=== PATIENT | female | born 1955 | race Caucasian/White ===

== ENCOUNTER 2020-05-15 18:46 | Emergency (ER) | payer OTHER ==
[~2020-05-15] VITALS: Ht 152.4 cm; Wt 136.1 kg
--- NOTE | 2020-05-15 18:55 | Emergency Department Note ---
History of Present Illnes History of Present Illness Chief Complaint: COVID PUI History of Present Illness This is a 65 year old female presents to the ED for Chest pressure with SOB since 04/24/2020. Seen by PCP, Dr Fish ,patient was referred to Dr Rosen import/export administrator who performed a chemical stress test. No abl per patient . Historian: Patient Arrival Mode: Car Onset (how long ago): week(s) (3) Duration (how long): week(s) (3) Progression: worsening Chronicity: new Relieving factors: none Exacerbating factors: none Associated symptoms: Reports chest pain, Reports shortness of breath Previous service: tests performed, one or more referrals, re-evaluation Past Medical/Family History Physician Review I have reviewed the patient's past medical and family history. Any updates have been documented here. Past Medical History Recent Fever: No Clinical Suspicion of Infectio: No New/Unexplained Change in Ment: No Other Medical History: COPD hiatal hernia Past Surgical History: None Social History Smoking Cessation: Never Smoker Alcohol Use: None Any Illegal Drug Use: No Review of Systems Review of Systems Constitutional: Reports no symptoms EENTM: Reports no symptoms Cardiovascular: Reports chest pain Respiratory: Reports dyspnea Gastrointestinal: Reports no symptoms Genitourinary: Reports no symptoms Musculoskeletal: Reports no symptoms Integumentary: Reports no symptoms Neurological: Reports no symptoms Psychological: Reports no symptoms Endocrine: Reports no symptoms Hematological/Lymphatic: Reports no symptoms Physical Exam Related Data Allergies: Coded Allergies: No Known Drug Allergies (Verified Allergy, Unknown, 05/15/20) Triage Vital Signs Vital Signs Date Time Temp Pulse Resp B/P (MAP) Pulse Ox O2 Delivery O2 Flow Rate FiO2 05/15/20 18:52 98.0 72 18 133/62 100 05/15/20 20:00 Room Air Vital signs reviewed: Yes Physical Exam CONSTITUTIONAL Constitutional: Present obese HENT HENT: Present normocephalic, Present atraumatic, Present oropharynx clear/moist, Present nose normal HENT L/R: Present left ext ear normal, Present right ext ear normal EYES Eyes: Reports PERRL, Reports conjunctivae normal NECK Neck: Present ROM normal PULMONARY Pulmonary: Present effort normal, Present breath sounds normal CARDIOVASCULAR Cardiovascular: Present regular rhythm, Present heart sounds normal, Present capillary refill normal, Present normal rate GASTROINTESTINAL Abdominal: Present soft, Present nontender, Present bowel sounds normal GENITOURINARY Genitourinary: Present exam deferred SKIN Skin: Present warm, Present dry MUSCULOSKELETAL Musculoskeletal: Present ROM normal NEUROLOGICAL Neurological: Present alert, Present oriented x 3, Present no gross motor or sensory deficits PSYCHOLOGICAL Psychological: Present mood/affect normal, Present judgement normal Results Laboratory Lab results reviewed: Yes Laboratory comments Laboratory Tests Test 05/15/20 22:00 05/15/20 19:30 Creatine Kinase 29 IU/L (29-168) 30 IU/L (29-168) Creatine Kinase MB 0.30 ng/mL (0-5.0) 0.30 ng/mL (0-5.0) Troponin I 0.019 ng/mL (0-0.300) 0.014 ng/mL (0-0.300) White Blood Count 6.50 x10e3/uL (4.8-10.8) Red Blood Count 4.53 x10e6/uL (3.6-5.1) Hemoglobin 13.7 g/dL (12.0-16.0) Hematocrit 41.7 % (34.2-44.1) Mean Corpuscular Volume 92.1 fL (81-99) Mean Corpuscular Hemoglobin 30.2 pg (28-32) Mean Corpuscular Hemoglobin Concent 32.9 g/dL (31-35) Red Cell Distribution Width 13.2 % (11.7-14.4) Platelet Count 217 x10e3/uL (140-360) Neutrophils (%) (Auto) 56.4 % (38.7-80.0) Lymphocytes (%) (Auto) 32.0 % (18.0-39.1) Monocytes (%) (Auto) 9.2 % (4.4-11.3) Eosinophils (%) (Auto) 1.5 % (0.0-6.0) Basophils (%) (Auto) 0.6 % (0.0-1.0) Neutrophils # (Auto) 3.7 (2.1-6.9) Lymphocytes # (Auto) 2.1 (1.0-3.2) Monocytes # (Auto) 0.6 (0.2-0.8) Eosinophils # (Auto) 0.1 (0.0-0.4) Basophils # (Auto) 0.0 (0.0-0.1) Absolute Immature Granulocyte (auto 0.02 x10e3/uL (0-0.1) Sodium Level 144 mmol/L (136-145) Potassium Level 3.6 mmol/L (3.5-5.1) Chloride Level 107 mmol/L (98-107) Carbon Dioxide Level 25 mmol/L (22-29) Anion Gap 15.6 mmol/L (8-16) Blood Urea Nitrogen 10 mg/dL (7-26) Creatinine 0.76 mg/dL (0.57-1.11) Estimat Glomerular Filtration Rate > 60 ML/MIN (60-) BUN/Creatinine Ratio 13 (6-25) Glucose Level 95 mg/dL (74-118) Calcium Level 8.8 mg/dL (8.4-10.2) Total Bilirubin 0.4 mg/dL (0.2-1.2) Aspartate Amino Transf (AST/SGOT) 16 IU/L (5-34) Alanine Aminotransferase (ALT/SGPT) 20 IU/L (0-55) Alkaline Phosphatase 96 IU/L (40-150) B-Type Natriuretic Peptide 101.0 pg/mL (0-100) Total Protein 6.7 g/dL (6.5-8.1) Albumin 4.0 g/dL (3.5-5.0) Globulin 2.7 g/dL (2.3-3.5) Albumin/Globulin Ratio 1.5 (0.8-2.0) Imaging Imaging results reviewed: Yes Impressions [place] [id number] Patient Name: KRISTA BYRD MR #: [id number] : 1955 Age/Sex: 65/F Req #: [id number] Adm Physician: Ordered by: JACKIE LOZADA DO Report #: [id number] Location: ER Room/Bed: Procedure: [id number] CT/CT CHEST W Exam Date: Exam Time: REPORT STATUS: Signed EXAM: CT Chest WITH contrast 05/15/2020 8:30 PM INDICATION: chest pain COMPARISON: None TECHNIQUE: Chest was scanned utilizing a multidetector helical scanner from the lung apex through the level of the adrenal glands without administration of IV contrast. Coronal and sagittal reformations were obtained. Routine protocol was performed. IV CONTRAST: 100 mL of Omnipaque 300 COMPLICATIONS: None RADIATION DOSE: Total DLP: 543.71 mGy*cm Estimated effective dose: (DLP x 0.014 x size factor) mSv CTDIvol has been reviewed. It is below the limits set by the Radiation Protocol Committee (RPC). FINDINGS: LINES/ TUBES: None. LUNGS AND AIRWAYS: No pulmonary embolism to the level of interlobar pulmonary arteries. Segmental and subsegmental pulmonary arteries are not adequately opacified cannot be evaluated. Scattered subsegmental atelectasis are seen in both lungs. There is a 0.5 cm nodular opacity in the right lower lobe (series 3, image 75) could represent a focal area of atelectasis. Airways are normal. PLEURA: The pleural spaces are clear. HEART AND MEDIASTINUM: The thyroid gland is normal. No mediastinal, hilar or axillary lymphadenopathy. The heart is normal in size.. There is no pericardial effusion. UPPER ABDOMEN: There are cholecystectomy clips. BONES: Unremarkable. SOFT TISSUES: Unremarkable. IMPRESSION: No pulmonary embolism Scattered subsegmental atelectasis are seen in both lungs. A0.5 cm nodular opacity in the right lower lobe could represent a focal area of atelectasis. 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 Machine: Interpreted by ED physician Date: May 15, 2020 Time: 19:06 Prior ECG tracings: reviewed Rhythm: sinus rhythm Rate: normal BPM: 62 QRS axis: normal ST segments normal: Yes T waves normal: No T wave elevation: V1, V2 Clinical Impression: normal ECG Clinical Decision Tools HEART Score Date Taken: May 19, 2020 Time taken: 18:00 HEART Score: HEART Score Response (Comments) Value History Slightly suspicious 0 EKG Normal 0 Age 45 - 65 1 Troponin < or = to normal limit Total 1 Assessment & Plan Medical Decision Making MDM Diff Dx : ACS, Angina, PE, PTX, pneumonia, aortic dissection Assessment & Plan Final Impression: (1) Chest pain Depart Disposition: HOME, SELF-CARE Last Vital Signs Date Time Temp Pulse Resp B/P (MAP) Pulse Ox O2 Delivery O2 Flow Rate FiO2 05/15/20 22:56 54 15 97 05/15/20 22:50 117/82 Room Air 05/15/20 18:52 98.0 JACKIE LOZADA DO May 15, 2020 18:55
[2020-05-15] MEDS ORDERED: ASPIRIN 81 MG CHEW TAB PO ONE (19:00)
[2020-05-15 19:45] LABS: BASOPHILS % 0.6 % (0.0-1.0); EOSINOPHILS # (AUTO) 0.1 (0.0-0.4); EOSINOPHILS % 1.5 % (0.0-6.0); HEMATOCRIT 41.7 % (34.2-44.1); HEMOGLOBIN 13.7 g/dL (12.0-16.0); LYMPHOCYTES # (AUTO) 2.1 (1.0-3.2); MEAN CORPUSCULAR HEMOGLOBIN 30.2 pg (28-32); MEAN CORPUSCULAR HGB CONC 32.9 g/dL (31-35); MEAN CORPUSCULAR VOLUME 92.1 fL (81-99); MONOCYTES # (AUTO) 0.6 (0.2-0.8); MONOCYTES % 9.2 % (4.4-11.3); NEUTROPHILS # (AUTO) 3.7 (2.1-6.9); NEUTROPHILS % 56.4 % (38.7-80.0); PLATELET COUNT 217 x10e3/uL (140-360); RED BLOOD COUNT 4.53 x10e6/uL (3.6-5.1); RED CELL DISTRIBUTION WIDTH 13.2 % (11.7-14.4)
--- NOTE | 2020-05-15 20:01 | Diagnostic Imaging Report ---
EXAMINATION: CHEST SINGLE (PORTABLE) INDICATION: SOB COMPARISON: None FINDINGS: AP view TUBES and LINES: None. . LUNGS/PLEURA: Lungs are well inflated. There are bilateral interstitial opacities, consistent with pulmonary edema. Superimposed pneumonia cannot be excluded.. There is no pleural effusion or pneumothorax. HEART AND MEDIASTINUM: Cardiac size is mildly enlarged. BONES AND SOFT TISSUES: No acute osseous lesion. Soft tissues are unremarkable. UPPER ABDOMEN: No free air under the diaphragm. IMPRESSION: Mild cardiomegaly and pulmonary edema. Superimposed pneumonia cannot be excluded. Signed by: Mert Iglesias MD on 05/15/2020 7:57 PM
[2020-05-15 20:06] LABS: ALANINE AMINOTRANSFERASE 20 IU/L (0-55); ALBUMIN/GLOBULIN RATIO 1.5 (0.8-2.0); ALKALINE PHOSPHATASE 96 IU/L (40-150); ANION GAP 15.6 mmol/L (8-16); BLOOD UREA NITROGEN 10 mg/dL (7-26); BUN/CREATININE RATIO 13 (6-25); CALCIUM 8.8 mg/dL (8.4-10.2); CARBON DIOXIDE 25 mmol/L (22-29); CHLORIDE 107 mmol/L (98-107); CREATINE KINASE 30 IU/L (29-168); CREATININE, SERUM 0.76 mg/dL (0.57-1.11); EST GLOMERULAR FILTRATION RATE > 60 ML/MIN (60-); GLUCOSE 95 mg/dL (74-118); POTASSIUM 3.6 mmol/L (3.5-5.1); SODIUM 144 mmol/L (136-145)
--- NOTE | 2020-05-15 20:58 | Diagnostic Imaging Report ---
EXAM: CT Chest WITH contrast 05/15/2020 8:30 PM INDICATION: chest pain COMPARISON: None TECHNIQUE: Chest was scanned utilizing a multidetector helical scanner from the lung apex through the level of the adrenal glands without administration of IV contrast. Coronal and sagittal reformations were obtained. Routine protocol was performed. IV CONTRAST: 100 mL of Omnipaque 300 COMPLICATIONS: None RADIATION DOSE: Total DLP: 543.71 mGy*cm Estimated effective dose: (DLP x 0.014 x size factor) mSv CTDIvol has been reviewed. It is below the limits set by the Radiation Protocol Committee (RPC). FINDINGS: LINES/ TUBES: None. LUNGS AND AIRWAYS: No pulmonary embolism to the level of interlobar pulmonary arteries. Segmental and subsegmental pulmonary arteries are not adequately opacified cannot be evaluated. Scattered subsegmental atelectasis are seen in both lungs. There is a 0.5 cm nodular opacity in the right lower lobe (series 3, image 75) could represent a focal area of atelectasis. Airways are normal. PLEURA: The pleural spaces are clear. HEART AND MEDIASTINUM: The thyroid gland is normal. No mediastinal, hilar or axillary lymphadenopathy. The heart is normal in size.. There is no pericardial effusion. UPPER ABDOMEN: There are cholecystectomy clips. BONES: Unremarkable. SOFT TISSUES: Unremarkable. IMPRESSION: No pulmonary embolism Scattered subsegmental atelectasis are seen in both lungs. A0.5 cm nodular opacity in the right lower lobe could represent a focal area of atelectasis. Signed by: Mert Iglesias MD on 05/15/2020 8:55 PM
--- OUTSIDE RECORDS SUMMARY | 2020-05-15 21:12 | XMS REPORT | Continuity of Care Document ---
Author Author [facility] Organization [facility] Address [address] [place]. 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 Allergies, Adverse Reactions, Alerts This patient has no known allergies or adverse reactions. Medications This patient has no known medications. Procedures This patient has no known procedures. Results Test Description Test Time Test Comments Results Result Comments Source CT CHEST W 2020-05-15 20:50:00 [place] [address] Patient Name: KRISTA BYRD MR #: [id number] : 1955 Age/Sex: 65/F Req #: [id number] Adm Physician: Ordered by: JACKIE LOZADA DO Report #: [id number] Location: ER Room/Bed: Procedure: [id number] CT/CT CHEST W Exam Date: Exam Time: REPORT STATUS: Signed EXAM: CT Chest WITH contrast 05/15/2020 8:30 PM INDICATION: chest pain COMPARISON: None TECHNIQUE: Chest was scanned utilizing a multidetector helical scanner from the lung apex through the level of the adrenal glands without administration of IV contrast. Coronal and sagittal reformations were obtained. Routine protocol was performed. IV CONTRAST: 100 mL of Omnipaque 300 COMPLICATIONS: None RADIATION DOSE: Total DLP: 543.71 mGy*cm Estimated effective dose: (DLP x 0.014 x size factor) mSv CTDIvol has been reviewed. It is below the limits set by the Radiation Protocol Committee (RPC). FINDINGS: LINES/ TUBES: None. LUNGS AND AIRWAYS: No pulmonary embolism to the level of interlobar pulmonary arteries. Segmental and subsegmental pulmonary arteries are not adequately opacified cannot be evaluated. Scattered subsegmental atelectasis are seen in both lungs. There is a 0.5 cm nodular opacity in the right lower lobe (series 3, image 75) could represent a focal area of atelectasis. Airways are normal. PLEURA: The pleural spaces are clear. HEART AND MEDIASTINUM: The thyroid gland is normal. No mediastinal, hilar or axillary lymphadenopathy. The heart is normal in size.. There is no pericardial effusion. UPPER ABDOMEN: There are cholecystectomy clips. BONES: Unremarkable. SOFT TISSUES: Unremarkable. IMPRESSION: No pulmonary embolism Scattered subsegmental atelectasis are seen in both lungs. A0.5 cm nodular opacity in the right lower lobe could represent a focal area of atelectasis. Signed by: Mert Mattson MD on 05/15/2020 8:55 PM Dictated By: MERT MATTSON MD 54 Transcribed By: BELLA on 05/15/202054 COPY TO: JACKIE LOZADA DO CHEST SINGLE (PORTABLE) 2020-05-15 19:53:00 [place] [address] Patient Name: KRISTA BYRD MR #: [id number] : 1955 Age/Sex: 65/F Req #: [id number] Adm Physician: Ordered by: JACKIE LOZADA DO Report #: [id number] Location: ER Room/Bed: Procedure: [id number] DX/CHEST SINGLE (PORTABLE) Exam Date: 05/15/20 Exam Time: 1919 REPORT STATUS: Signed EXAMINATION: CHEST SINGLE (PORTABLE) INDICATION: SOB COMPARISON: None FINDINGS: AP view TUBES and LINES: None. . LUNGS/PLEURA: Lungs are well inflated. There are bilateral interstitial opacities, consistent with pulmonary edema. Superimposed pneumonia cannot be excluded.. There is no pleural effusion or pneumothorax. HEART AND MEDIASTINUM: Cardiac size is mildly enlarged. BONES AND SOFT TISSUES: No acute osseous lesion. Soft tissues are unremarkable. UPPER ABDOMEN: No free air under the diaphragm. IMPRESSION: Mild cardiomegaly and pulmonary edema. Superimposed pneumonia cannot be excluded. Signed by: Mert Mattson MD on 05/15/2020 7:57 PM Dictated By: MERT MATTSON MD 57 Transcribed By: BELLA on 05/15/201956 COPY TO: JACKIE LOZADA DO
[2020-05-15] MEDS ORDERED: ASPIRIN 81 MG CHEW TAB ONE (22:03)
[2020-05-15 22:29] LABS: CREATINE KINASE MB 0.3 ng/mL (0-5.0)
[2020-05-15] MEDS ORDERED: KETOROLAC TROMETHAMINE 30 MG/ML VIAL IV STA (22:47)
[2020-05-15 22:56] VITALS: BP 117/82
== END 2020-05-15 23:26 | disposition home or self-care (01) ==
LOC: ER 21:08
DX: R07.89 Other chest pain (principal); R06.02 Shortness of breath; J44.9 Chronic obstructive pulmonary disease, unspecified
CPT/HCPCS: 36415; 71045; 71260; 80053; 82550; 82553; 82948; 83880; 84484; 85025; 93005; 99284; J1885

== ENCOUNTER 2021-11-22 15:14 | Emergency (ER) | payer MEDICARE ==
[~2021-11-22] VITALS: Ht 152.4 cm; Wt 136.1 kg
[2021-11-22] MEDS ORDERED: METHYLPREDNISOLONE SOD SUCC 125 MG/2ML VIAL IV ONE (15:45)
[2021-11-22] MEDS ORDERED: ALBUTEROL/IPRATROPIUM 3 ML NEB NEB ONE (15:45)
[2021-11-22 15:49] LABS: BASOPHILS % 0.4 % (0.0-1.0); EOSINOPHILS % 0.1 % (0.0-6.0); HEMOGLOBIN 14.8 g/dL (12.0-16.0); LYMPHOCYTES % 25.3 % (18.0-39.1); MEAN CORPUSCULAR HEMOGLOBIN 30.5 pg (28-32); MEAN CORPUSCULAR HGB CONC 33.6 g/dL (31-35); MEAN CORPUSCULAR VOLUME 90.7 fL (81-99); MONOCYTES # (AUTO) 0.5 (0.2-0.8); MONOCYTES % 5.9 % (4.4-11.3); NEUTROPHILS # (AUTO) 5.4 (2.1-6.9); NEUTROPHILS % 67.5 % (38.7-80.0); PLATELET COUNT 222 x10e3/uL (140-360); RED BLOOD COUNT 4.85 x10e6/uL (3.6-5.1); RED CELL DISTRIBUTION WIDTH 12.5 % (11.7-14.4)
[2021-11-22 16:03] LABS: INR 0.93; PROTHROMBIN TIME 13.3 seconds (11.9-14.5)
[2021-11-22 16:04] LABS: PARTIAL THROMBOPLASTIN TIME 27.8 seconds (23.8-35.5)
[2021-11-22 16:12] LABS: ALBUMIN 3.7 g/dL (3.5-5.0); ANION GAP 11.9 mmol/L (8-16); CALCIUM 9.4 mg/dL (8.4-10.2); CREATININE, SERUM 0.84 mg/dL (0.57-1.11); POTASSIUM 3.9 mmol/L (3.5-5.1)
[2021-11-22 16:19] LABS: CREATINE KINASE MB 0.6 ng/mL (0-5.0)
== END 2021-11-22 18:01 | disposition home or self-care (01) ==
LOC: ER 15:40
DX: J45.901 Unspecified asthma with (acute) exacerbation (principal); R05.9 Cough, unspecified; I10 Essential (primary) hypertension; K21.9 Gastro-esophageal reflux disease without esophagitis; Z20.822 Contact with and (suspected) exposure to COVID-19
CPT/HCPCS: 36415; 71045; 80053; 82550; 82553; 83735; 83880; 84484; 85025; 85610; 85730; 87040; 93005; 99284; J2930; U0002

== ENCOUNTER 2022-02-07 12:48 | Emergency (ER) | payer MEDICARE ==
[~2022-02-07] VITALS: Ht 152.4 cm; Wt 136.1 kg
[2022-02-07 14:34] VITALS: BP 153/70
== END 2022-02-07 14:36 | disposition home or self-care (01) ==
LOC: ER 12:55
DX: U07.1 COVID-19 (principal)
CPT/HCPCS: 93005; 99283